=== PATIENT | female | born 1995 | race African-American/Black ===

== ENCOUNTER 2016-11-28 07:12 | Emergency (ER) | payer MEDICAID ==
[~2016-11-28] VITALS: Ht 162.6 cm; Wt 63.5 kg
[2016-11-28 07:31] VITALS: BP 106/75
[2016-11-28] MEDS ORDERED: Clindamycin 900mg 50 ML IVPB ONE (07:45)
[2016-11-28] MEDS ORDERED: Ketorolac 30mg Inj IV ONE (07:45)
[2016-11-28 08:06] LABS: BASOPHILS % (AUTO) 1.5 % (0.0-2.0); EOSINOPHILS % (AUTO) 0.4 % (0.0-3.0); LYMPHOCYTES % (AUTO) 11.9 % (20.0-45.0); MEAN CORPUSCULAR HEMOGLOBIN 29.1 PG (27.0-31.0); MEAN CORPUSCULAR HGB CONC 32.9 G/DL (32.0-36.0); MEAN CORPUSCULAR VOLUME 88 FL (80-99); MONOCYTES % (AUTO) 9.7 % (1.0-10.0); NEUTROPHILS % (AUTO) 76.5 % (45.0-75.0); PLATELET COUNT 283 K/UL (150-450); WHITE BLOOD COUNT 14.3 K/UL (4.8-10.8)
--- NOTE | 2016-11-28 08:13 | Emergency Room Report ---
History of Present Illness General Chief Complaint: General Complaint Source: Patient Present Illness HPI 20YOF walk-in with left sided cheek swelling for 1-2 days. Patient had been to "multiple dentists" to have left lower 1st molar removed (after it cracked). Was given amoxicillin yesterday "to take before they would remove it" but overnight swelling in left side of mouth, cheek got worse. Denies fever/chills, painful/difficulty swallowing. Denies previous abscesses in mouth. No known med allergies. Allergies: Coded Allergies: No Known Allergies (Unverified , 11/28/16) Patient History Past Medical History: none Past Surgical History: none Pertinent Family History: none Social History: Denies: alcohol use, drug use, smoking Last Menstrual Period: 2016 Now: No Immunizations: UTD Reviewed Nursing Documentation: PMH: Agreed, PSxH: Agreed Nursing Documentation-PMH Past Medical History: No Stated History Review of Systems All Other Systems: negative except mentioned in HPI Physical Exam Vital Signs Date Time Temp Pulse Resp B/P Pulse Ox O2 Delivery O2 Flow Rate FiO2 11/28/16 07:24 98.1 82 20 106/75 98 Room Air Sp02 EP Interpretation: reviewed, normal General Appearance: normal inspection, well appearing, no apparent distress, alert, GCS 15, non-toxic Head: normocephalic, atraumatic Eyes: bilateral eye EOMI, bilateral eye PERRL ENT: normal ENT inspection, hearing grossly normal, normal pharynx, no angioedema, normal voice, TMs + canals normal, uvula midline, other - Obvious swelling of soft tissue of left cheek. cracked 1st molar lower left. Mild ttp inner cheek. No kenyetta-apical abscess. 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, motor strength/tone normal, speech normal Psychiatric: normal inspection, judgement/insight normal, mood/affect normal Skin: normal inspection, normal color, no rash Lymphatic: normal inspection Medical Decision Making Diagnostic Impression: Primary Impression: Abscess of internal cheek, left ER Course Labs: Leuks 14k IV clinda with toradol/decadron given to reduce swelling with significant improvement noticed in ED Advised to STOP Amoxicillin Rx Clinda for dental abscess Rx Ibuprofen for pain Dental followup when abscess is improved for tooth removal DC home Last Vital Signs Date Time Temp Pulse Resp B/P Pulse Ox O2 Delivery O2 Flow Rate FiO2 11/28/16 07:31 98.1 20 106/75 98 Room Air 11/28/16 07:24 82 Status: improved Disposition: HOME, SELF-CARE Scripts Ibuprofen* (MOTRIN*) 600 Mg Tablet 600 MG ORAL THREE TIMES A DAY for pain, swelling for 7 Days, #30 TAB 0 Refills Prov: BEHZAD CARIAS M.D. 11/28/16 Clindamycin Hcl (CLINDAMYCIN HCL) 300 Mg Capsule 300 MG ORAL QID for 7 Days, #28 CAP Prov: BEHZAD CARIAS M.D. 11/28/16 Referrals: [facility] [email or web address] (PCP) BEHZDA CARIAS M.D. Nov 28, 2016 08:13
[2016-11-28 08:14] LABS: ALANINE AMINOTRANSFERASE 11 U/L (3-33); ALBUMIN/GLOBULIN RATIO 1.2 (1.0-2.7); ANION GAP 16 (5-15); ASPARTATE AMINO TRANSFERASE 16 U/L (5-40); CALCIUM 9.4 mg/dL (8.6-10.2); CARBON DIOXIDE 21 mEQ/L (20-30); CHLORIDE 96 mEQ/L (98-107); CREATININE 0.6 mg/dL (0.5-0.9); GLOMERULAR FILTRATION RATE > 60 mL/min (>60); HEMOLYSIS 136; SODIUM 133 mEQ/L (135-145)
[2016-11-28] MEDS ORDERED: CLINDAMYCIN HC300 MG ORAL (08:25)
[2016-11-28] MEDS ORDERED: IBUPROFEN600 MG ORAL (08:25)
[2016-11-28 08:30] VITALS: BP 106/75
== END 2016-11-28 08:30 | disposition home or self-care (01) ==
LOC: EMR 07:46
DX: L02.01 Cutaneous abscess of face (principal)
CPT/HCPCS: 36415; 80053; 85025; 96374; 99284; J1885; J8540; S0077